=== PATIENT | male | born 1980 | race Caucasian/White ===

== ENCOUNTER 2019-06-28 04:09 | Emergency (ER) | payer BC ==
--- NOTE | 2019-06-28 05:43 | ER ---
Nurse's Notes [facility] Name: Camden Collado Age: 39 yrs Sex: Male : 1980 Arrival Date: 06/28/2019 Time: 04:10 Bed 6 Private MD: Diagnosis: Acute tonsillitis;Fever, unspecified Presentation: 06/28 04:24 Presenting complaint: Patient states: fatigue, dry cough, throat pain, body aches ak1 started at noon Sunday. pt took dayquil at 2000. Transition of care: patient was not received from another setting of care. Onset of symptoms was June 26, 2019. Risk Assessment: Do you want to hurt yourself or someone else? Patient reports no desire to harm self or others. Initial Sepsis Screen: Does the patient meet any 2 criteria? No. Patient's initial sepsis screen is negative. Does the patient have a suspected source of infection? No. Patient's initial sepsis screen is negative. Care prior to arrival: None. 04:24 Acuity: MIKEL 4 ak1 04:24 Method Of Arrival: Ambulatory ak1 Triage Assessment: 04:27 General: Appears in no apparent distress. uncomfortable, Behavior is calm, cooperative. ak1 Pain: Complains of pain in throat, body aches. EENT: Throat is reddened with gag reflex present. Neuro: Level of Consciousness is awake, alert, obeys commands, Oriented to person, place, time, situation, Moves all extremities. Full function. Cardiovascular: Rhythm is sinus tachycardia. Respiratory: Reports cough that is dry, persistent Airway is patent Respiratory effort is even, unlabored, Respiratory pattern is regular. GI: No signs and/or symptoms were reported involving the gastrointestinal system. : No signs and/or symptoms were reported regarding the genitourinary system. Derm: fever. Musculoskeletal: Reports body aches. Historical: - Allergies: 04:27 No Known Allergies; ak1 - Home Meds: 04:27 None [Active]; ak1 - PMHx: 04:27 None; ak1 - PSHx: 04:27 Appendectomy; ak1 - Immunization history:: Adult Immunizations unknown, Flu vaccine is not up to date. - Social history:: Smoking status: Patient uses tobacco products, smokes one-half pack cigarettes per day. - Ebola Screening: : No symptoms or risks identified at this time. Screenin:28 Abuse screen: Denies threats or abuse. Nutritional screening: No deficits noted. ea Tuberculosis screening: No symptoms or risk factors identified. Fall Risk None identified. Assessment: 04:54 Reassessment: Patient appears in no apparent distress at this time. No changes from ak1 previously documented assessment. 06:08 Reassessment: Patient and/or family updated on plan of care and expected duration. Pain ea level reassessed. Patient is alert, oriented x 3, equal unlabored respirations, skin warm/dry/pink. Discharge instruction given to patient, verbalized the understanding of instruction. pt left ED ambulatory, tolerating well. Vital Signs: 04:24 BP 151 / 94; Pulse 123; Resp 16; Temp 99.4(O); Pulse Ox 97% on R/A; Weight 108.86 kg ak1 (R); Height 5 ft. 10 in. (177.80 cm) (R); Pain 0/10; 04:54 BP 143 / 93; Pulse 115; Resp 16; ak1 04:24 Body Mass Index 34.44 (108.86 kg, 177.80 cm) ak1 ED Course: 04:10 Patient arrived in ED. ds1 04:[address], RN is Primary Nurse. ak1 04:24 Arm band placed on Patient placed in an exam room, on a stretcher, on pulse oximetry, ak1 Patient notified of wait time. 04:25 Triage completed. ak1 04:29 Patient has correct armband on for positive identification. Placed in gown. Bed in low ea position. 05:12 Marco Villafana MD is Attending Physician. nir 06:12 No provider procedures requiring assistance completed. Patient did not have IV access ea during this emergency room visit. Administered Medications: 05:53 Drug: Bicillin L-A 1.8 million units Route: IM; Site: left gluteus; ea 06:08 Follow up: Response: No adverse reaction ea 05:53 Drug: Motrin 800 mg Route: PO; ea 06:08 Follow up: Response: No adverse reaction ea Outcome: 05:43 Discharge ordered by . nir 06:12 Discharged to home ambulatory. ea 06:12 Condition: stable 06:12 Discharge instructions given to patient, Instructed on discharge instructions, follow up and referral plans. Demonstrated understanding of instructions, follow-up care. 06:13 Patient left the ED. ea Signatures: Marco Villafana MD MD cha Sanford, Demi ds1 Aaliyah Lane RN RN akSofía Dong RN RN ea
[2019-06-28] MEDS ORDERED: IBUPROFEN 400 MG TAB ONE (05:44)
--- NOTE | 2019-06-28 05:44 | EDPHYS ---
Physician Documentation [facility] Name: Camden Collado Age: 39 yrs Sex: Male : 1980 Arrival Date: 06/28/2019 Time: 04:10 Bed 6 Private MD: ED Physician Marco Villafana HPI: 06/28 05:40 This 39 yrs old Male presents to ER via Ambulatory with complaints of Sore nir Throat, Body Aches. 05:40 The patient presents with sore throat. The patient describes throat pain as constant, nir raw, scratchy. Onset: The symptoms/episode began/occurred 1 day(s) ago. Severity of symptoms: At their worst the symptoms were mild, moderate, in the emergency department the symptoms are unchanged. Modifying factors: The symptoms are alleviated by. Associated signs and symptoms: Pertinent positives: cough, fever, Sore throat. The patient has not experienced similar symptoms in the past. Historical: - Allergies: 04:27 No Known Allergies; ak1 - Home Meds: 04:27 None [Active]; ak1 - PMHx: 04:27 None; ak1 - PSHx: 04:27 Appendectomy; ak1 - Immunization history:: Adult Immunizations unknown, Flu vaccine is not up to date. - Social history:: Smoking status: Patient uses tobacco products, smokes one-half pack cigarettes per day. - Ebola Screening: : No symptoms or risks identified at this time. ROS: 05:41 Eyes: Negative for injury, pain, redness, and discharge, Neck: Negative for injury, nir pain, and swelling, Cardiovascular: Negative for chest pain, palpitations, and edema, Respiratory: Negative for shortness of breath, cough, wheezing, and pleuritic chest pain, Abdomen/GI: Negative for abdominal pain, nausea, vomiting, diarrhea, and constipation, Back: Negative for injury and pain, : Negative for injury, bleeding, discharge, and swelling, MS/Extremity: Negative for injury and deformity, Skin: Negative for injury, rash, and discoloration, Neuro: Negative for headache, weakness, numbness, tingling, and seizure, Psych: Negative for depression, anxiety, suicide ideation, homicidal ideation, and hallucinations, Allergy/Immunology: Negative for hives, rash, and allergies, Endocrine: Negative for neck swelling, polydipsia, polyuria, polyphagia, and marked weight changes, Hematologic/Lymphatic: Negative for swollen nodes, abnormal bleeding, and unusual bruising. 05:41 Constitutional: Positive for body aches, chills, fever. 05:41 ENT: Positive for difficulty swallowing. Exam: 05:41 Head/Face: Normocephalic, atraumatic. Eyes: Pupils equal round and reactive to light, nir extra-ocular motions intact. Lids and lashes normal. Conjunctiva and sclera are non-icteric and not injected. Cornea within normal limits. Periorbital areas with no swelling, redness, or edema. Neck: Trachea midline, no thyromegaly or masses palpated, and no cervical lymphadenopathy. Supple, full range of motion without nuchal rigidity, or vertebral point tenderness. No Meningismus. Chest/axilla: Normal chest wall appearance and motion. Nontender with no deformity. No lesions are appreciated. Cardiovascular: Regular rate and rhythm with a normal S1 and S2. No gallops, murmurs, or rubs. Normal PMI, no JVD. No pulse deficits. Respiratory: Lungs have equal breath sounds bilaterally, clear to auscultation and percussion. No rales, rhonchi or wheezes noted. No increased work of breathing, no retractions or nasal flaring. Abdomen/GI: Soft, non-tender, with normal bowel sounds. No distension or tympany. No guarding or rebound. No evidence of tenderness throughout. Back: No spinal tenderness. No costovertebral tenderness. Full range of motion. Male : Normal genitalia with no discharge or lesions. Skin: Warm, dry with normal turgor. Normal color with no rashes, no lesions, and no evidence of cellulitis. MS/ Extremity: Pulses equal, no cyanosis. Neurovascular intact. Full, normal range of motion. Neuro: Awake and alert, GCS 15, oriented to person, place, time, and situation. Cranial nerves II-XII grossly intact. Motor strength 5/5 in all extremities. Sensory grossly intact. Cerebellar exam normal. Normal gait. Psych: Awake, alert, with orientation to person, place and time. Behavior, mood, and affect are within normal limits. 05:41 Constitutional: The patient appears febrile. 05:41 ENT: Mouth: no acute changes, Lips: normal, Oral mucosa: normal, Gums: normal with healthy appearance, Tongue: is normal, abscess, is not appreciated, drooling, is not appreciated, Posterior pharynx: Tonsils: bilaterally enlarged, with erythema, with exudate. Vital Signs: 04:24 BP 151 / 94; Pulse 123; Resp 16; Temp 99.4(O); Pulse Ox 97% on R/A; Weight 108.86 kg ak (R); Height 5 ft. 10 in. (177.80 cm) (R); Pain 0/10; 04:54 BP 143 / 93; Pulse 115; Resp 16; ak1 04:24 Body Mass Index 34.44 (108.86 kg, 177.80 cm) [facility] MDM: 05:12 Patient medically screened. [facility] 05:42 Data reviewed: vital signs, nurses notes, lab test result(s). [facility] 06/28 04:23 Order name: Flu; Complete Time: 05:39 [facility] 06/28 04:23 Order name: Strep; Complete Time: 05:39 [facility] 06/28 05:39 Order name: PO challenge; Complete Time: 05:43 [facility] Administered Medications: 05:53 Drug: Bicillin L-A 1.8 million units Route: IM; Site: left gluteus; ea 06:08 Follow up: Response: No adverse reaction ea 05:53 Drug: Motrin 800 mg Route: PO; ea 06:08 Follow up: Response: No adverse reaction Disposition: 06/28/19 05:43 Discharged to Home. Impression: Acute tonsillitis, Fever, unspecified. - Condition is Stable. - Discharge Instructions: Fever, Adult, Tonsillitis, Tonsillitis, [id number], Fever, Adult, [id number]. - Work release form, Medication Reconciliation Form, Thank You Letter, Antibiotic Education, Prescription Opioid Use form. - Follow up: Private Physician; When: 2 - 3 days; Reason: Recheck today's complaints, Continuance of care, Re-evaluation by your physician. - Problem is new. - Symptoms have improved. Signatures: Dispatcher [employer] Marco Nelson MD MD cha Krenek, Amber, RN RN ak1 Sofía Lyn RN RN ea Corrections: (The following items were deleted from the chart) 06:13 05:43 06/28/2019 05:43 Discharged to Home. Impression: Acute tonsillitis; Fever, ea unspecified. Condition is Stable. Forms are Medication Reconciliation Form, Thank You Letter, Antibiotic Education, Prescription Opioid Use. Follow up: Private Physician; When: 2 - 3 days; Reason: Recheck today's complaints, Continuance of care, Re-evaluation by your physician. Problem is new. Symptoms have improved. nir
[2019-06-28] MEDS ORDERED: PEN G BENZ LA 2.4 MU/4 ML SYRINGE IM ONE (05:45)
[2019-06-28 06:19] VITALS: TEMP 99.4; O2SAT 97
[2019-06-28 06:20] VITALS: BP 143/93
== END 2019-06-28 06:13 | disposition home or self-care (01) ==
LOC: ER 04:09
DX: J03.90 Acute tonsillitis, unspecified (principal); F17.210 Nicotine dependence, cigarettes, uncomplicated
CPT/HCPCS: 87081; 87804 ×2; 96372; 99284; J0561

== ENCOUNTER 2021-03-31 08:44 | Emergency (ER) | payer BC ==
[2021-03-31 09:32] LABS: Absolute Lymphocytes (CBC) 2.1 K/uL (0.7-4.9); Basophils % 0.7 % (0-1.3); Hematocrit 45.4 % (39.6-49.0); Lymphocytes % 26.7 % (15.3-44.8); RBC Red Blood Cell Count 5.16 M/uL (4.33-5.43)
--- NOTE | 2021-03-31 09:49 | RAD REPORT ---
EXAM DESCRIPTION: US - Abdomen Exam Limited - 03/31/2021 9:35 am CLINICAL HISTORY: Abdominal pain COMPARISON: None. FINDINGS: Gallbladder size is normal. No gallstones, wall thickening or pericholecystic fluid. Commo n bile duct is normal with no common duct stone identified. IMPRESSION: Negative for cholelithiasis or acute cholecystitis. Unremarkable limited abdominal ultra sound.
--- NOTE | 2021-03-31 10:47 | RAD REPORT ---
EXAM DESCRIPTION: CTAbdomen Pelvis W Contrast - 03/31/2021 10:08 am CLINICAL HISTORY: Abdominal pain. abdominal pain COMPARISON: Abdomen Pelvis W Contrast dated 06/03/2017 TECHNIQUE: Biphasic CT imaging of the abdomen and pelvis was performed with 100 ml non-ionic IV cont rast. All CT scans are performed using dose optimization technique as appropriate and may include automated exposure control or mA/KV adjustment according to patient size. FINDINGS: The lung bases are clear. Static steatosis. No focal liver lesions are identified. The gallbladder is unremarkable. The adrenal glands are unremarkable. The spleen is unremarkable. The pancreas is unremarkable. No hydronephrosis or stones. Tiny right lower pole exophytic renal lesion which likely a cyst. No bowel obstruction, free air, free fluid or abscess. No appendix identified. No evidence of signi ficant lymphadenopathy. No suspicious bony findings. IMPRESSION: No acute intra-abdominal or pelvic finding.
--- NOTE | 2021-03-31 15:51 | ER ---
Nurse's Notes [facility] Name: Camden Collado Age: 40 yrs Sex: Male : 1980 Arrival Date: 03/31/2021 Time: 08:46 Bed 13 Private MD: Diagnosis: Abdominal pain, unspecified Presentation: 03/31 09:00 Chief complaint: RUQ pain and bloating x 2 months, sharp LUQ pain x 2 weeks. Pain is hb worse after meals. Denies N/V/D/fever. Coronavirus screen: At this time, the client does not indicate any symptoms associated with coronavirus-19. Ebola Screen: No symptoms or risks identified at this time. Initial Sepsis Screen: Does the patient meet any 2 criteria? No. Patient's initial sepsis screen is negative. Does the patient have a suspected source of infection? No. Patient's initial sepsis screen is negative. Risk Assessment: Do you want to hurt yourself or someone else? Patient reports no desire to harm self or others. Onset of symptoms was January 2021. 09:00 Method Of Arrival: Ambulatory hb 09:00 Acuity: MIKEL 3 hb Historical: - Allergies: 09:02 No Known Allergies; hb - Home Meds: 09:02 None [Active]; hb - PMHx: 09:02 None; hb - PSHx: 09:02 Appendectomy; hb - Immunization history:: Client reports having NOT received the Covid vaccine. - Social history:: Smoking status: Patient denies any tobacco usage or history of. Screenin:07 Abuse screen: Denies threats or abuse. Nutritional screening: No deficits noted. tw2 Tuberculosis screening: No symptoms or risk factors identified. Fall Risk None identified. Assessment: 09:08 General: Appears in no apparent distress. Behavior is calm, cooperative, appropriate tw2 for age. Pain: Complains of pain in left upper quadrant. Neuro: Level of Consciousness is awake, alert, obeys commands, Oriented to person, place, time, situation. Cardiovascular: Patient's skin is warm and dry. Respiratory: Airway is patent Respiratory effort is even, unlabored, Respiratory pattern is regular, symmetrical. GI: Bowel sounds present X 4 quads. Abd is soft X 4 quads Patient currently denies diarrhea, nausea, vomiting. : No signs and/or symptoms were reported regarding the genitourinary system. EENT: No signs and/or symptoms were reported regarding the EENT system. Derm: No signs and/or symptoms reported regarding the dermatologic system. Musculoskeletal: Range of motion: intact in all extremities. 11:07 Reassessment: Patient appears in no apparent distress at this time. No changes from tw2 previously documented assessment. Patient and/or family updated on plan of care and expected duration. Pain level reassessed. Patient is alert, oriented x 3, equal unlabored respirations, skin warm/dry/pink. 12:03 Reassessment: Patient appears in no apparent distress at this time. No changes from tw2 previously documented assessment. Patient and/or family updated on plan of care and expected duration. Pain level reassessed. Patient is alert, oriented x 3, equal unlabored respirations, skin warm/dry/pink. 13:08 Reassessment: Patient appears in no apparent distress at this time. No changes from tw2 previously documented assessment. Patient and/or family updated on plan of care and expected duration. Pain level reassessed. Patient is alert, oriented x 3, equal unlabored respirations, skin warm/dry/pink. 14:00 Reassessment: Patient appears in no apparent distress at this time. No changes from tw2 previously documented assessment. Patient and/or family updated on plan of care and expected duration. Pain level reassessed. Patient is alert, oriented x 3, equal unlabored respirations, skin warm/dry/pink. 15:27 Reassessment: Patient appears in no apparent distress at this time. No changes from tw2 previously documented assessment. Patient and/or family updated on plan of care and expected duration. Pain level reassessed. Patient is alert, oriented x 3, equal unlabored respirations, skin warm/dry/pink. Vital Signs: 09:00 BP 149 / 94; Pulse 89; Resp 16; Temp 97.1; Pulse Ox 100% on R/A; Weight 116.12 kg; hb Height 5 ft. 10 in. (177.80 cm); Pain 9/10; 11:07 BP 124 / 86; Pulse 80; Resp 17; Pulse Ox 97% on R/A; tw2 12:03 BP 139 / 91; Pulse 79; Resp 17; Pulse Ox 100% on R/A; tw2 13:08 BP 133 / 81; Pulse 87; Resp 17; Pulse Ox 96% on R/A; tw2 14:18 BP 123 / 77; Pulse 73; Resp 17; Pulse Ox 97% on R/A; tw2 15:27 BP 132 / 90; Pulse 82; Resp 17; Pulse Ox 95% on R/A; tw2 09:00 Body Mass Index 36.73 (116.12 kg, 177.80 cm) hb ED Course: 08:46 Patient arrived in ED. rg4 08:47 Damion Adame PA is PHCP. [facility] 08:47 Washington Cuello MD is Attending Physician. [facility] 09:02 Triage completed. hb 09:03 Arm band placed on. hb 09:05 Bed in low position. Call light in reach. Pulse ox on. NIBP on. tw2 09:07 Mercedes Sanz, RN is Primary Nurse. tw2 09:20 Inserted saline lock: 20 gauge in right antecubital area, using aseptic technique. tw2 Blood collected. 09:27 Basic Metabolic Panel Sent. tw2 09:28 CBC with Diff Sent. tw2 09:28 Hepatic Function Sent. tw2 09:28 Lipase Sent. tw2 09:35 US Abdomen Limited In Process Unspecified. EDMS 10:08 CT Abd/Pelvis - IV Contrast Only In Process Unspecified. EDMS 15:49 Joe Klein MD is Referral Physician. [facility] 16:00 No provider procedures requiring assistance completed. IV discontinued, intact, tw2 bleeding controlled, No redness/swelling at site. Pressure dressing applied. Administered Medications: No medications were administered Outcome: 15:50 Discharge ordered by . [facility] 16:00 Discharged to home ambulatory. tw2 16:00 Condition: stable 16:00 Discharge instructions given to patient, Instructed on discharge instructions, follow up and referral plans. Demonstrated understanding of instructions, follow-up care. 16:00 Patient left the ED. tw2 Signatures: Dispatcher [employer] EDMS Damion Adame PA PA [facility] Jyoti Barros RN RN Mercedes Sanz RN RN 2 Nimco Guzman rg4 Corrections: (The following items were deleted from the chart) 09:03 09:02 Allergies: Aspirin; hb hb
--- NOTE | 2021-03-31 15:51 | EDPHYS ---
Physician Documentation [facility] Name: Camden Collado Age: 40 yrs Sex: Male : 1980 Arrival Date: 03/31/2021 Time: 08:46 Bed 13 Private MD: ED Physician Washington Cuello HPI: 03/31 09:59 This 40 yrs old Male presents to ER via Ambulatory with complaints of [facility] Abdominal Pain. 09:59 The patient presents with abdominal pain. Onset: The symptoms/episode began/occurred jmm gradually, 2 month(s) ago. The symptoms do not radiate. Associated signs and symptoms: Pertinent negatives: fever, vomiting. The symptoms are described as achy, sharp. Modifying factors: The symptoms are alleviated by nothing, the symptoms are aggravated by movement. Is a 40-year-old male no chronic conditions presents emerged part with complaints of left upper abdominal pain. Patient states the pain initially began on the right upper quadrant approximately 2 months ago and is migrated to the left side. Patient states pain is exacerbated by leaning forward. Patient denies vomiting, diarrhea, fever, recent travel, recent antibiotic use, infectious exposure.. Historical: - Allergies: 09:02 No Known Allergies; hb - Home Meds: 09:02 None [Active]; hb - PMHx: 09:02 None; hb - PSHx: 09:02 Appendectomy; hb - Immunization history:: Client reports having NOT received the Covid vaccine. - Social history:: Smoking status: Patient denies any tobacco usage or history of. ROS: 09:59 Constitutional: Negative for fever, chills, and weight loss, Cardiovascular: Negative jmm for chest pain, palpitations, and edema, Respiratory: Negative for shortness of breath, cough, wheezing, and pleuritic chest pain. 09:59 Abdomen/GI: Positive for abdominal pain. 09:59 All other systems are negative. Exam: 09:59 Constitutional: This is a well developed, well nourished patient who is awake, alert, jmm and in no acute distress. Head/Face: atraumatic. Eyes: EOMI, no conjunctival erythema appreciated ENT: Moist Mucus Membranes Neck: Trachea midline, Supple Chest/axilla: Normal chest wall appearance and motion. Cardiovascular: Regular rate and rhythm. No edema appreciated Respiratory: Normal respirations, no respiratory distress appreciated 09:59 Back: Normal ROM Skin: General appearance color normal MS/ Extremity: Moves all extremities, no obvious deformities appreciated, no edema noted to the lower extremities Neuro: Awake and alert, normal gait Psych: Behavior is normal, Mood is normal, Patient is cooperative and pleasant 09:59 Abdomen/GI: Inspection: obese Bowel sounds: normal, Palpation: soft, mild abdominal tenderness, in the left upper quadrant. Vital Signs: 09:00 BP 149 / 94; Pulse 89; Resp 16; Temp 97.1; Pulse Ox 100% on R/A; Weight 116.12 kg; hb Height 5 ft. 10 in. (177.80 cm); Pain 9/10; 11:07 BP 124 / 86; Pulse 80; Resp 17; Pulse Ox 97% on R/A; tw2 12:03 BP 139 / 91; Pulse 79; Resp 17; Pulse Ox 100% on R/A; tw2 13:08 BP 133 / 81; Pulse 87; Resp 17; Pulse Ox 96% on R/A; tw2 14:18 BP 123 / 77; Pulse 73; Resp 17; Pulse Ox 97% on R/A; tw2 15:27 BP 132 / 90; Pulse 82; Resp 17; Pulse Ox 95% on R/A; tw2 09:00 Body Mass Index 36.73 (116.12 kg, 177.80 cm) hb MDM: 09:09 Patient medically screened. nir 15:48 Data reviewed: vital signs, nurses notes. Counseling: I had a detailed discussion with jennifer the patient and/or guardian regarding: the historical points, exam findings, and any diagnostic results supporting the discharge/admit diagnosis, radiology results, the need for outpatient follow up, to return to the emergency department if symptoms worsen or persist or if there are any questions or concerns that arise at home. 03/31 09:14 Order name: Basic Metabolic Panel [facility] 03/31 09:14 Order name: CBC with Diff; Complete Time: 09:36 [facility] 03/31 09:14 Order name: Hepatic Function [facility] 03/31 09:14 Order name: Lipase [facility] 03/31 09:14 Order name: US Abdomen Limited; Complete Time: 09:53 [facility] 03/31 13:07 Order name: CREATININE WHOLE BLOOD; Complete Time: 13:12 [facility] 03/31 09:14 Order name: IV Saline Lock; Complete Time: 09: [facility] 03/31 09:14 Order name: Labs collected and sent; Complete Time: [facility] 03/31 09:33 Order name: CT Abd/Pelvis - IV Contrast Only; Complete Time: 10:50 [facility] Administered Medications: No medications were administered Disposition Summary: 03/31/21 15:50 Discharge Ordered Location: Home [facility] Condition: Stable [facility] Diagnosis - Abdominal pain, unspecified [facility] Followup: [facility] - With: Joe Klein MD - When: 2 - 3 days - Reason: Recheck today's complaints, Continuance of care, Re-evaluation by your physician Discharge Instructions: - Abdominal Pain, Adult [facility] - Discharge Summary Sheet tw2 Forms: - Medication Reconciliation Form [facility] - Thank You Letter [facility] - Antibiotic Education [facility] - Prescription Opioid Use [facility] - Work release form tw2 Signatures: Dispatcher [employer] Marco Nelson MD MD cha Mickail, Joel, PA PA jmm Baxter, Heather RN RN hb Corrections: (The following items were deleted from the chart) 09:03 09:02 Allergies: Aspirin; hb hb
[2021-03-31 16:11] VITALS: TEMP 97.1
[2021-03-31 16:21] VITALS: BP 132/90; O2SAT 95
[2021-04-01 12:24] LABS: Potassium 4.2
[2021-04-01 12:27] LABS: Bilirubin Total 0.7
[2021-04-01 12:28] LABS: Albumin 4.7; Protein, Total 8.3
== END 2021-03-31 16:00 | disposition home or self-care (01) ==
LOC: ER 08:44
DX: R10.12 Left upper quadrant pain (principal)
CPT/HCPCS: 85025; 80048; 36415; 82565; 80076; 83690; 74177; 76705; 99284; Q9967